=== PATIENT | female | born 1940 | race Caucasian/White ===

== ENCOUNTER 2017-12-23 15:22 | Outpatient (CLI) | payer MEDICARE, MEDICAID ==
--- NOTE | 2017-12-23 16:15 | RAD ---
TWO VIEWS CERVICAL SPINE: 12/23/17 HISTORY: Cervical myelopathy, G95.9. Patient with constant headache, cervical myalgia. AP and lateral views cervical spine demonstrate ACDF. The anterior plate is obliqued toward the right . There is approximately 3.5 mm of anterolisthesis of C4 on C5. There is some anterior displacement o f the anterior fusion plate as well. The screws are in good position. IMPRESSION: Obliquity of the ACDF plate. There is approximately 3.5 mm of anterolisthesis of C4 on C5. POS: [facility]
== END 2017-12-23 15:23 | disposition home or self-care (01) ==
LOC: TBSIIMAG 15:22
PROVIDERS: ATTEND Physician Assistant
DX: G95.9 Disease of spinal cord, unspecified (principal); M43.12 Spondylolisthesis, cervical region; Z98.1 Arthrodesis status
CPT/HCPCS: 72040

== ENCOUNTER 2018-01-06 11:02 | Outpatient (CLI) | payer MEDICARE, MEDICAID ==
--- NOTE | 2018-01-06 11:50 | RAD ---
CERVICAL SPINE THREE VIEWS: HISTORY: A 77-year-old female, status post ACDF. COMPARISON: 12/23/2017 FINDINGS: Stable appearing anterior cervical fusion changes are noted at C3, C4, C5, and C6, with mild, approxi mately 0.3 cm anterolisthesis of C4 on C5, stable. Extensive facet arthrosis. Disk osteophytosis at C6-C7. The tip of the odontoid and portions of C1 are obscured on the AP open-mouth view. IMPRESSION: Stable anterior cervical fusion changes with stable minimal anterolisthesis of C4 on C5. POS: [facility]
== END 2018-01-06 11:03 | disposition home or self-care (01) ==
LOC: TBSIIMAG 11:02
PROVIDERS: ATTEND Neurological Surgery
DX: M50.30 Other cervical disc degeneration, unspecified cervical region (principal); M43.12 Spondylolisthesis, cervical region; Z98.1 Arthrodesis status
CPT/HCPCS: 72040

== ENCOUNTER 2018-02-25 14:55 | Outpatient (CLI) | payer MEDICARE, MEDICAID ==
--- NOTE | 2018-02-25 15:52 | RAD ---
CERVICAL SPINE AP AND LATERAL AND STANDARD: HISTORY: Surgical followup. COMPARISON: Radiographs of 01/06/18. FINDINGS: There are C1-C2 screws. No migration of the diskectomy spacers. No normal C4 anterior vertebral bod y is appreciated. The hardware is to the right of midline. C4 over C5 anterolisthesis is similar. IMPRESSION: Similar examination, although there is some lucency around the C3 screws which abut the end plate. POS: [facility]
== END 2018-02-25 14:56 | disposition home or self-care (01) ==
LOC: TBSIIMAG 14:55
PROVIDERS: ATTEND Neurological Surgery
DX: M50.30 Other cervical disc degeneration, unspecified cervical region (principal); Z98.890 Other specified postprocedural states
CPT/HCPCS: 72040

== ENCOUNTER 2021-01-30 12:56 | Outpatient (CLI) | payer MEDICARE, OTHER | END 2021-01-30 12:57 | disposition home or self-care (01) | LOC: BICRAD 12:56 | PROVIDERS: ATTEND Internal Medicine Pulmonary Disease | DX: R06.00 Dyspnea, unspecified (principal) | CPT/HCPCS: 71046 ==

== ENCOUNTER 2022-02-13 11:06 | Outpatient (CLI) | payer OTHER, MEDICAID | END 2022-02-13 11:07 | disposition home or self-care (01) | LOC: BICCT 11:06 | PROVIDERS: ATTEND Specialist | DX: M84.48XA Pathological fracture, other site, initial encounter for fracture (principal); G83.4 Cauda equina syndrome; M43.17 Spondylolisthesis, lumbosacral region | CPT/HCPCS: 72192 ==

== ENCOUNTER 2022-02-14 16:02 | Inpatient (IN) | payer MEDICAID, MEDICARE, OTHER ==
[2022-02-14] MEDS ORDERED: traMADol HCl 50 MG TAB PO PRN (17:17)
[2022-02-14] MEDS ORDERED: diphenhydrAMINE 25 MG CAP PO PRN (17:17)
[2022-02-14] MEDS ORDERED: Ondansetron PF 4 MG/2 ML Vial IVP PRN (17:17)
[2022-02-14] MEDS ORDERED: Morphine 2 MG/ML VIAL SLOW IVP PRN (17:17)
[2022-02-14] MEDS ORDERED: HYDROcodone/Acetaminophen 10/325 mg Tablet PO PRN (17:26)
[2022-02-14] MEDS ORDERED: Lidocaine 5% Patch TD PRN (17:26)
[2022-02-14] MEDS: Mometasone 100 MCG/PUFF (1 INHALER) INH SCH (19:00)
[2022-02-14 21:19] LABS: #Eosinphils 0.3 thou/uL (0.0-0.7); #Lymphocytes 1.8 thou/uL (1.20-3.40); #Monocytes 0.4 thou/uL (0.11-0.59); #Neutrophils 3.8 thou/uL (1.40-6.50); %Basophils 0.3 % (0.0-1.0); %Eosinophils 5.2 % (0.0-10.0); %Lymphocytes 28.5 % (21.0-51.0); %Monocytes 6.6 % (0.0-10.0); %Neutrophils 59.4 % (42.0-75.0); Hemoglobin 10.8 g/dL (12.0-16.0); Mean Corpuscular HGB CONC 32.7 g/dL (32.0-36.0); Mean Corpuscular Hemoglobin 31.4 pg (27.0-31.0); Mean Corpuscular Volume 95.8 fL (78.0-98.0); Mean Platelet Volume 7.4 fL (7.4-10.4); Platelet Count 255 thou/uL (130-400); RBC Distribution Width 12.3 % (11.5-14.5); Red Blood Cell (RBC) Count 3.46 mill/uL (4.20-5.40); White Blood Cell (WBC) Count 6.3 thou/uL (4.8-10.8)
[2022-02-14] MEDS: Gabapentin 100 MG CAP PO SCH (21:37)
[2022-02-14 21:39] LABS: ALT (SGPT) 10 U/L (8-55); AST (SGOT) 13 U/L (5-34); Albumin 3.5 g/dL (3.4-4.8); Alkaline Phosphatase 99 U/L (40-110); Anion Gap 11 mmol/L (10-20); BUN (Urea Nitrogen) 17 mg/dL (9.8-20.1); Bilirubin, Total 0.3 mg/dL (0.2-1.2); Calc. Creatinine Clearance 0 mL/min (70-130); Calcium 8.8 mg/dL (7.8-10.44); Carbon Dioxide 28 mmol/L (23-31); Chloride 106 mmol/L (98-107); Estimated GFR 61; Globulin 2.6 g/dL (2.4-3.5); Glucose 120 mg/dL (83-110); Potassium 3.4 mmol/L (3.5-5.1); Protein, Total 6.1 g/dL (5.8-8.1); Sodium 142 mmol/L (136-145)
[2022-02-14 21:42] LABS: INR-International Normal Ratio 1.1; Prothrombin Time 13.8 sec (12.0-14.7)
[2022-02-14 21:43] LABS: PTT 32.6 sec (22.9-36.1)
[2022-02-14] MEDS: Sodium Chloride 0.9% 1,000 ML IV SCH (23:25)
[2022-02-14 23:29] VITALS: BMI 33.5
[2022-02-15 01:25] LABS: SARS-CoV-2 NAA Rapid Test Not Detected (NotDetected)
[2022-02-15] MEDS: Acetaminophen 325 MG TAB PO PRN (05:21)
[2022-02-15] MEDS ORDERED: Thrombin 5000 UNITS/5 ML VIAL ONE ×2 (07:24→10:30)
[2022-02-15] MEDS ORDERED: Neomycin-Polymyxin 1 ML AMP ONE (07:24)
[2022-02-15] MEDS ORDERED: Phenylephrine 10 MG/ML VIAL ONE ×2 (07:27→08:14)
[2022-02-15] MEDS ORDERED: Famotidine/PF 20 mg/2ml Vial ONE (07:27)
[2022-02-15] MEDS ORDERED: SUGAMMADEX SODIUM 200 MG/2 ML VIAL ONE ×2 (07:27→12:30)
[2022-02-15] MEDS ORDERED: Sodium Chloride 0.9% 100 ML ONE (07:29)
[2022-02-15] MEDS ORDERED: CEFAZOLIN 2 GM VIAL ONE (07:29)
[2022-02-15] MEDS: Mometasone 100 MCG/PUFF (1 INHALER) INH SCH ×2 (07:34→18:45)
[2022-02-15] MEDS ORDERED: fentaNYL Citrate/PF 100 MCG/2 ML SYRINGE ONE (08:12)
[2022-02-15] MEDS ORDERED: Ondansetron PF 4 MG/2 ML Vial ONE (08:14)
[2022-02-15] MEDS ORDERED: Metoclopramide HCl 10 MG/2 ML VIAL ONE (08:14)
[2022-02-15] MEDS ORDERED: PROPOFOL 200 MG/20 ML VIAL ONE (08:14)
[2022-02-15] MEDS ORDERED: Rocuronium Bromide 10 MG/ML (10ML VIAL) ONE (08:14)
[2022-02-15] MEDS ORDERED: Dexamethasone 20 MG/5 ML VIAL ONE ×2 (08:14)
[2022-02-15] MEDS ORDERED: Lidocaine 1% MPF 2 ML VIAL ONE (08:14)
[2022-02-15] MEDS ORDERED: Ketorolac Tromethamine 30 MG/ML VIAL ONE (08:14)
[2022-02-15] MEDS ORDERED: Glycopyrrolate 0.2 MG/ML 5 ML SYRINGE ONE (08:14)
[2022-02-15] MEDS ORDERED: NEOSTIGMINE 3 MG/3 ML SYR 3 MG/3 ML SYRINGE ONE (08:14)
[2022-02-15] MEDS ORDERED: Non-Formulary Item 1 EACH (Fluticasone/Umeclidin/Vilanter [Trelegy Ellipta 100-62.5-25] 1 INH SCH (09:00)
[2022-02-15] MEDS: Sodium Chloride 0.9% 1,000 ML IV SCH ×2 (09:05→21:22)
[2022-02-15] MEDS: Gabapentin 100 MG CAP PO SCH ×3 (09:05→21:20)
[2022-02-15] MEDS: Valsartan 80 MG TAB PO SCH (09:06)
[2022-02-15] MEDS: Hydrochlorothiazide 25 MG TAB PO SCH (09:06)
[2022-02-15] MEDS ORDERED: Ondansetron HCl/PF 4 MG/2 ML Vial IVP PRN (12:28)
[2022-02-15] MEDS ORDERED: Ketorolac Tromethamine 30 MG/ML VIAL IVP PRN (13:16)
[2022-02-15] MEDS ORDERED: Polyethylene Glycol 3350 17 GM Packet PO PRN (13:18)
[2022-02-15] MEDS ORDERED: LEVALBUTEROL TARTRATE IH PRN (13:20)
[2022-02-15] MEDS ORDERED: hydrALAZINE 20 MG/ML VIAL SLOW IVP PRN (13:20)
[2022-02-15] MEDS ORDERED: Fentanyl 100 MCG/2 ML VIAL ONE (13:31)
[2022-02-15] MEDS ORDERED: Levalbuterol HCl 1.25 MG/0.5 ML NEB NEB PRN (13:55)
[2022-02-15] MEDS: Gabapentin 300 MG CAP PO SCH ×2 (15:03→21:21)
[2022-02-15] MEDS: CEFAZOLIN 2 GM in Sodium Chloride 0.9% 100 ML IVPB SCH ×2 (15:03→21:21)
[2022-02-15 17:27] LABS: Hemoglobin 12.8 g/dL (12.0-16.0)
[2022-02-15] MEDS ORDERED: [UNRECOGNIZED DRUG - OTHER] PO SCH (21:00)
[2022-02-15] MEDS ORDERED: PSEUDOEPHEDRINE PO SCH (21:00)
[2022-02-15] MEDS ORDERED: CETIRIZINE HCL PO SCH (21:00)
[2022-02-15] MEDS: Docusate 100 MG CAP PO SCH (21:21)
[2022-02-15] MEDS: Verapamil 120 MG TAB PO SCH (22:00)
[2022-02-16] MEDS: Acetaminophen/Codeine 30-300mg Tablet PO PRN ×3 (05:51→21:03)
[2022-02-16] MEDS: CEFAZOLIN 2 GM in Sodium Chloride 0.9% 100 ML IVPB SCH ×3 (05:52→21:05)
[2022-02-16 05:53] LABS: #Eosinphils 0.1 thou/uL (0.0-0.7); #Lymphocytes 0.4 thou/uL (1.20-3.40); #Monocytes 0.6 thou/uL (0.11-0.59); #Neutrophils 10.3 thou/uL (1.40-6.50); %Eosinophils 0.6 % (0.0-10.0); %Lymphocytes 3.1 % (21.0-51.0); %Monocytes 5.5 % (0.0-10.0); %Neutrophils 90.8 % (42.0-75.0); Hemoglobin 11.3 g/dL (12.0-16.0); Mean Corpuscular Hemoglobin 32.6 pg (27.0-31.0); Mean Corpuscular Volume 95.9 fL (78.0-98.0); Mean Platelet Volume 8.4 fL (7.4-10.4); Platelet Count 183 thou/uL (130-400); RBC Distribution Width 12.4 % (11.5-14.5); Red Blood Cell (RBC) Count 3.47 mill/uL (4.20-5.40); White Blood Cell (WBC) Count 11.3 thou/uL (4.8-10.8)
[2022-02-16] MEDS: Mometasone 100 MCG/PUFF (1 INHALER) INH SCH ×2 (07:53→18:46)
[2022-02-16 08:02] LABS: Calcium 7.8 mg/dL (7.8-10.44); Chloride 108 mmol/L (98-107); Potassium 4.8 mmol/L (3.5-5.1); Sodium 138 mmol/L (136-145)
[2022-02-16 08:03] LABS: Glucose 125 mg/dL (83-110)
[2022-02-16 08:04] LABS: Anion Gap 13 mmol/L (10-20); Carbon Dioxide 22 mmol/L (23-31)
[2022-02-16 08:06] LABS: Calc. Creatinine Clearance 70 mL/min (70-130); Estimated GFR 68
[2022-02-16 08:07] LABS: BUN (Urea Nitrogen) 21 mg/dL (9.8-20.1)
[2022-02-16] MEDS: Hydrochlorothiazide 25 MG TAB PO SCH (08:16)
[2022-02-16] MEDS: guaiFENesin ER 600 MG TAB PO SCH (08:17)
[2022-02-16] MEDS: Valsartan 80 MG TAB PO SCH (08:17)
[2022-02-16] MEDS: Loratadine/Pseudoephedrine 10/240 mg Tablet PO SCH (08:17)
[2022-02-16] MEDS: Gabapentin 300 MG CAP PO SCH ×3 (08:17→21:05)
[2022-02-16] MEDS: tiZANidine HCl 4 MG TAB PO PRN (08:17)
[2022-02-16] MEDS: Gabapentin 100 MG CAP PO SCH ×3 (08:18→21:04)
[2022-02-16] MEDS: Docusate 100 MG CAP PO SCH ×2 (08:18→21:05)
[2022-02-16] MEDS: Sodium Chloride 0.9% 1,000 ML IV SCH (09:10)
[2022-02-16] MEDS: Lorazepam 1 MG TAB PO PRN (21:04)
[2022-02-16] MEDS: Verapamil 120 MG TAB PO SCH (21:08)
[2022-02-17] MEDS: Sodium Chloride 0.9% 1,000 ML IV SCH ×3 (03:33→23:17)
[2022-02-17] MEDS: CEFAZOLIN 2 GM in Sodium Chloride 0.9% 100 ML IVPB SCH (05:53)
[2022-02-17] MEDS: Acetaminophen/Codeine 30-300mg Tablet PO PRN ×4 (05:58→18:25)
[2022-02-17] MEDS: Mometasone 100 MCG/PUFF (1 INHALER) INH SCH ×2 (06:46→18:39)
[2022-02-17] MEDS: Hydrochlorothiazide 25 MG TAB PO SCH (09:33)
[2022-02-17] MEDS: Gabapentin 300 MG CAP PO SCH ×3 (09:35→20:39)
[2022-02-17] MEDS: guaiFENesin ER 600 MG TAB PO SCH (09:36)
[2022-02-17] MEDS: Valsartan 80 MG TAB PO SCH (09:36)
[2022-02-17] MEDS: Loratadine/Pseudoephedrine 10/240 mg Tablet PO SCH (09:37)
[2022-02-17] MEDS: Docusate 100 MG CAP PO SCH ×2 (09:37→20:39)
[2022-02-17] MEDS: Lorazepam 1 MG TAB PO PRN ×2 (09:37→20:38)
[2022-02-17] MEDS: Gabapentin 100 MG CAP PO SCH ×3 (09:39→19:39)
[2022-02-17 11:10] LABS: Bacteria/HPF None Seen HPF (None Seen); Bilirubin Negative (Negative); Blood, Urine Negative (Negative); Clarity Clear (Clear); Glucose, Urine (Dipstick) Normal (Negative); Ketone, Urine Negative (Negative); Leukocyte Negative Leu/uL (Negative); Nitrite Negative (Negative); Protein, Urine (Dipstick) Negative (Neg-Trace); RBC/HPF 0-3 HPF (0-3); Squamous Epithelial None Seen HPF (0-3); Urobilinogen Normal mg/dL (Less than 2); WBC/HPF 0-3 HPF (0-3); pH, Urine 5.5 (5.0-9.0)
[2022-02-17 11:14] LABS: Urine Culture Reflex No No
[2022-02-17] MEDS: Verapamil 120 MG TAB PO SCH (20:39)
[2022-02-18] MEDS: Mometasone 100 MCG/PUFF (1 INHALER) INH SCH ×2 (06:45→19:14)
[2022-02-18] MEDS: Acetaminophen/Codeine 30-300mg Tablet PO PRN (06:49)
[2022-02-18] MEDS: Gabapentin 100 MG CAP PO SCH ×3 (12:56→19:27)
[2022-02-18] MEDS: HYDROcodone/Acetaminophen 7.5/325 mg Tablet PO PRN ×2 (12:57→20:08)
[2022-02-18] MEDS: Docusate 100 MG CAP PO SCH ×2 (12:59→20:06)
[2022-02-18] MEDS: Valsartan 80 MG TAB PO SCH (12:59)
[2022-02-18] MEDS: Hydrochlorothiazide 25 MG TAB PO SCH (12:59)
[2022-02-18] MEDS: Gabapentin 300 MG CAP PO SCH ×3 (13:00→20:06)
[2022-02-18] MEDS: guaiFENesin ER 600 MG TAB PO SCH ×2 (13:00→13:05)
[2022-02-18] MEDS: Loratadine/Pseudoephedrine 10/240 mg Tablet PO SCH ×2 (13:00→13:06)
[2022-02-18] MEDS: Lorazepam 1 MG TAB PO PRN (13:17)
[2022-02-18] MEDS: Sodium Chloride 0.9% 1,000 ML IV SCH ×2 (14:46→23:05)
[2022-02-18] MEDS: Verapamil 120 MG TAB PO SCH (20:06)
[2022-02-19] MEDS: HYDROcodone/Acetaminophen 7.5/325 mg Tablet PO PRN (05:34)
[2022-02-19] MEDS: Mometasone 100 MCG/PUFF (1 INHALER) INH SCH ×2 (06:32→18:44)
[2022-02-19] MEDS: guaiFENesin ER 600 MG TAB PO SCH (08:00)
[2022-02-19] MEDS: Hydrochlorothiazide 25 MG TAB PO SCH (08:02)
[2022-02-19] MEDS: Docusate 100 MG CAP PO SCH ×2 (08:03→20:59)
[2022-02-19] MEDS: Gabapentin 100 MG CAP PO SCH ×3 (08:04→20:58)
[2022-02-19] MEDS: Valsartan 80 MG TAB PO SCH (08:04)
[2022-02-19] MEDS: Loratadine/Pseudoephedrine 10/240 mg Tablet PO SCH (08:05)
[2022-02-19] MEDS: Gabapentin 300 MG CAP PO SCH ×3 (08:05→20:58)
[2022-02-19] MEDS: Lorazepam 1 MG TAB PO PRN ×2 (08:09→18:09)
[2022-02-19] MEDS: Sodium Chloride 0.9% 1,000 ML IV SCH (16:30)
[2022-02-19] MEDS: Verapamil 120 MG TAB PO SCH (20:57)
[2022-02-20] MEDS: Lorazepam 1 MG TAB PO PRN (01:05)
[2022-02-20] MEDS: Acetaminophen/Codeine 30-300mg Tablet PO PRN ×2 (01:12→09:18)
[2022-02-20] MEDS: Mometasone 100 MCG/PUFF (1 INHALER) INH SCH ×2 (07:29→18:26)
[2022-02-20] MEDS: guaiFENesin ER 600 MG TAB PO SCH (09:18)
[2022-02-20] MEDS: Docusate 100 MG CAP PO SCH ×2 (09:18→19:56)
[2022-02-20] MEDS: Hydrochlorothiazide 25 MG TAB PO SCH (09:19)
[2022-02-20] MEDS: Gabapentin 100 MG CAP PO SCH ×3 (09:19→19:56)
[2022-02-20] MEDS: Valsartan 80 MG TAB PO SCH (09:19)
[2022-02-20] MEDS: Gabapentin 300 MG CAP PO SCH ×3 (09:19→19:57)
[2022-02-20] MEDS: Loratadine/Pseudoephedrine 10/240 mg Tablet PO SCH (09:19)
[2022-02-20] MEDS: Sodium Chloride 0.9% 1,000 ML IV SCH ×2 (09:56→19:57)
[2022-02-20] MEDS: Verapamil 120 MG TAB PO SCH (19:58)
[2022-02-20] MEDS: tiZANidine HCl 4 MG TAB PO PRN (22:21)
[2022-02-21] MEDS: Lorazepam 1 MG TAB PO PRN ×2 (00:48→20:40)
[2022-02-21] MEDS: Mometasone 100 MCG/PUFF (1 INHALER) INH SCH ×2 (07:52→19:47)
[2022-02-21] MEDS: Docusate 100 MG CAP PO SCH ×2 (08:36→20:40)
[2022-02-21] MEDS: Gabapentin 100 MG CAP PO SCH ×3 (08:36→20:40)
[2022-02-21] MEDS: Loratadine/Pseudoephedrine 10/240 mg Tablet PO SCH (08:36)
[2022-02-21] MEDS: guaiFENesin ER 600 MG TAB PO SCH (08:36)
[2022-02-21] MEDS: Gabapentin 300 MG CAP PO SCH ×3 (08:36→20:41)
[2022-02-21] MEDS: Hydrochlorothiazide 25 MG TAB PO SCH (08:37)
[2022-02-21] MEDS: Valsartan 80 MG TAB PO SCH (08:37)
[2022-02-21] MEDS: Sodium Chloride 0.9% 1,000 ML IV SCH ×2 (09:57→23:54)
[2022-02-21] MEDS: Verapamil 120 MG TAB PO SCH (20:40)
[2022-02-21] MEDS: tiZANidine HCl 4 MG TAB PO PRN (20:40)
[2022-02-22] MEDS: Mometasone 100 MCG/PUFF (1 INHALER) INH SCH ×2 (06:51→19:20)
[2022-02-22] MEDS: guaiFENesin ER 600 MG TAB PO SCH (08:33)
[2022-02-22] MEDS: Loratadine/Pseudoephedrine 10/240 mg Tablet PO SCH (08:33)
[2022-02-22] MEDS: Valsartan 80 MG TAB PO SCH (08:33)
[2022-02-22] MEDS: Gabapentin 300 MG CAP PO SCH ×3 (08:33→20:34)
[2022-02-22] MEDS: Docusate 100 MG CAP PO SCH ×2 (08:33→20:34)
[2022-02-22] MEDS: Hydrochlorothiazide 25 MG TAB PO SCH (08:33)
[2022-02-22] MEDS: Gabapentin 100 MG CAP PO SCH ×3 (08:33→20:34)
[2022-02-22] MEDS: Sodium Chloride 0.9% 1,000 ML IV SCH (11:14)
[2022-02-22] MEDS: Verapamil 120 MG TAB PO SCH (20:34)
[2022-02-22] MEDS: Lorazepam 1 MG TAB PO PRN (20:34)
[2022-02-22] MEDS: tiZANidine HCl 4 MG TAB PO PRN (20:35)
[2022-02-23] MEDS: Sodium Chloride 0.9% 1,000 ML IV SCH ×2 (00:49→13:45)
[2022-02-23] MEDS: Mometasone 100 MCG/PUFF (1 INHALER) INH SCH ×2 (07:20→18:39)
[2022-02-23] MEDS: Loratadine/Pseudoephedrine 10/240 mg Tablet PO SCH (09:20)
[2022-02-23] MEDS: Gabapentin 300 MG CAP PO SCH ×3 (09:20→20:21)
[2022-02-23] MEDS: Valsartan 80 MG TAB PO SCH (09:20)
[2022-02-23] MEDS: Docusate 100 MG CAP PO SCH ×2 (09:20→20:22)
[2022-02-23] MEDS: guaiFENesin ER 600 MG TAB PO SCH (09:21)
[2022-02-23] MEDS: Gabapentin 100 MG CAP PO SCH ×3 (09:21→20:20)
[2022-02-23] MEDS: Hydrochlorothiazide 25 MG TAB PO SCH (09:21)
[2022-02-23] MEDS: Acetaminophen 325 MG TAB PO PRN (20:19)
[2022-02-23] MEDS: Verapamil 120 MG TAB PO SCH (20:19)
[2022-02-23] MEDS: Lorazepam 1 MG TAB PO PRN (20:20)
[2022-02-24] MEDS: Sodium Chloride 0.9% 1,000 ML IV SCH ×2 (04:15→18:43)
[2022-02-24] MEDS: Mometasone 100 MCG/PUFF (1 INHALER) INH SCH ×2 (07:55→19:21)
[2022-02-24] MEDS: Acetaminophen/Codeine 30-300mg Tablet PO PRN ×2 (09:42→15:58)
[2022-02-24] MEDS: guaiFENesin ER 600 MG TAB PO SCH (09:43)
[2022-02-24] MEDS: Loratadine/Pseudoephedrine 10/240 mg Tablet PO SCH (09:43)
[2022-02-24] MEDS: Hydrochlorothiazide 25 MG TAB PO SCH (09:43)
[2022-02-24] MEDS: Valsartan 80 MG TAB PO SCH (09:43)
[2022-02-24] MEDS: Gabapentin 300 MG CAP PO SCH ×3 (09:44→20:27)
[2022-02-24] MEDS: Docusate 100 MG CAP PO SCH ×2 (09:48→20:26)
[2022-02-24] MEDS: Gabapentin 100 MG CAP PO SCH ×2 (11:36→15:59)
[2022-02-24] MEDS: Verapamil 120 MG TAB PO SCH (20:27)
[2022-02-24] MEDS: Lorazepam 1 MG TAB PO PRN (20:27)
[2022-02-25] MEDS: Sodium Chloride 0.9% 1,000 ML IV SCH ×2 (02:23→19:27)
[2022-02-25] MEDS: Mometasone 100 MCG/PUFF (1 INHALER) INH SCH ×2 (06:51→19:01)
[2022-02-25] MEDS: Gabapentin 300 MG CAP PO SCH ×3 (08:20→20:32)
[2022-02-25] MEDS: Loratadine/Pseudoephedrine 10/240 mg Tablet PO SCH (08:20)
[2022-02-25] MEDS: Hydrochlorothiazide 25 MG TAB PO SCH (08:20)
[2022-02-25] MEDS: guaiFENesin ER 600 MG TAB PO SCH (08:20)
[2022-02-25] MEDS: Docusate 100 MG CAP PO SCH ×2 (08:20→20:32)
[2022-02-25] MEDS: Valsartan 80 MG TAB PO SCH (08:20)
[2022-02-25] MEDS: Acetaminophen/Codeine 30-300mg Tablet PO PRN ×2 (12:54→17:25)
[2022-02-25] MEDS: Verapamil 120 MG TAB PO SCH (20:32)
[2022-02-25] MEDS: Lorazepam 1 MG TAB PO PRN (20:32)
[2022-02-26] MEDS: Mometasone 100 MCG/PUFF (1 INHALER) INH SCH ×2 (07:09→19:07)
[2022-02-26] MEDS: Docusate 100 MG CAP PO SCH ×2 (09:07→20:19)
[2022-02-26] MEDS: Gabapentin 300 MG CAP PO SCH ×3 (09:09→20:20)
[2022-02-26] MEDS: guaiFENesin ER 600 MG TAB PO SCH (09:10)
[2022-02-26] MEDS: Hydrochlorothiazide 25 MG TAB PO SCH (09:11)
[2022-02-26] MEDS: Loratadine/Pseudoephedrine 10/240 mg Tablet PO SCH (09:12)
[2022-02-26] MEDS: Acetaminophen/Codeine 30-300mg Tablet PO PRN ×2 (09:13→17:52)
[2022-02-26] MEDS: Valsartan 80 MG TAB PO SCH (09:14)
[2022-02-26] MEDS: Sodium Chloride 0.9% 1,000 ML IV SCH ×2 (14:29→22:53)
[2022-02-26] MEDS: HYDROcodone/Acetaminophen 7.5/325 mg Tablet PO PRN (20:20)
[2022-02-26] MEDS: Verapamil 120 MG TAB PO SCH (20:23)
[2022-02-27] MEDS: Mometasone 100 MCG/PUFF (1 INHALER) INH SCH ×2 (06:25→18:48)
[2022-02-27] MEDS: Valsartan 80 MG TAB PO SCH (09:09)
[2022-02-27] MEDS: guaiFENesin ER 600 MG TAB PO SCH (09:10)
[2022-02-27] MEDS: Loratadine/Pseudoephedrine 10/240 mg Tablet PO SCH (09:11)
[2022-02-27] MEDS: Hydrochlorothiazide 25 MG TAB PO SCH (09:11)
[2022-02-27] MEDS: Gabapentin 300 MG CAP PO SCH (09:12)
[2022-02-27] MEDS: Docusate 100 MG CAP PO SCH (09:17)
[2022-02-27] MEDS: HYDROcodone/Acetaminophen 7.5/325 mg Tablet PO PRN (11:17)
[2022-02-27 16:13] VITALS: BP 102/79; TEMP 97.8
== END 2022-02-27 17:10 | disposition home health service (06) | DRG 460 ==
LOC: ERS 16:02 → SURG A 17:17
PROVIDERS: ADMIT Surgery; ATTEND Surgery
PROC: 0SG30AJ Fusion of Lumbosacral Joint with Interbody Fusion Device, Posterior Approach, Anterior Column, Open Approach (ICD-10-PCS; principal; 2022-02-15)
PROC: 01NR0ZZ Release Sacral Nerve, Open Approach (ICD-10-PCS; 2022-02-15)
PROC: 01NB0ZZ Release Lumbar Nerve, Open Approach (ICD-10-PCS; 2022-02-15)
PROC: 30233N1 Transfusion of Nonautologous Red Blood Cells into Peripheral Vein, Percutaneous Approach (ICD-10-PCS; 2022-02-15)
DX: M43.17 Spondylolisthesis, lumbosacral region (principal); G83.4 Cauda equina syndrome; Z20.822 Contact with and (suspected) exposure to COVID-19; M19.90 Unspecified osteoarthritis, unspecified site; I10 Essential (primary) hypertension; J44.9 Chronic obstructive pulmonary disease, unspecified; F41.9 Anxiety disorder, unspecified; G89.29 Other chronic pain; Z90.49 Acquired absence of other specified parts of digestive tract; Z28.21 Immunization not carried out because of patient refusal; Z90.710 Acquired absence of both cervix and uterus; Z98.890 Other specified postprocedural states; Z88.6 Allergy status to analgesic agent; Z88.5 Allergy status to narcotic agent; Z79.899 Other long term (current) drug therapy; Z87.891 Personal history of nicotine dependence
CPT/HCPCS: 36415; 36430; 51702; 72192; 76000; 80048; 80053; 81001; 85014; 85018; 85025; 85610; 85730; 86850; 86900; 86901; 87811; 93005; 93970; 94640; C1713; C1768; C1776; J0690; J1100; J1885; J2370; J2405; J2704; J2765; J3010; J3370; J3490; J7050; J7620; P9016; S0028; U0002

== ENCOUNTER 2022-04-04 10:31 | Outpatient (CLI) | payer OTHER | END 2022-04-04 10:32 | disposition home or self-care (01) | LOC: TBSIIMAG 10:31 | PROVIDERS: ATTEND Surgery | DX: R07.81 Pleurodynia (principal); M47.816 Spondylosis without myelopathy or radiculopathy, lumbar region; M43.17 Spondylolisthesis, lumbosacral region; Z98.890 Other specified postprocedural states | CPT/HCPCS: 72100 ==

== ENCOUNTER 2022-07-04 14:52 | Observation (INO) | payer OTHER, MEDICAID ==
[2022-07-04 15:25] LABS: Bacteria/HPF None Seen HPF (None Seen); Bilirubin Negative (Negative); Blood, Urine Negative (Negative); Clarity Clear (Clear); Glucose, Urine (Dipstick) Normal (Negative); Ketone, Urine Negative (Negative); Leukocyte 25 Leu/uL (Negative); Nitrite Negative (Negative); Protein, Urine (Dipstick) 10 mg/dL (Neg-Trace); RBC/HPF 0-3 HPF (0-3); Specific Gravity, Urine 1.024 (1.002-1.036); Squamous Epithelial 0-3 HPF (0-3); Urobilinogen Normal mg/dL (Less than 2); pH, Urine 5.5 (5.0-9.0)
[2022-07-04 15:52] LABS: #Eosinphils 0.1 thou/uL (0.0-0.7); #Lymphocytes 1.3 thou/uL (1.20-3.40); #Monocytes 0.4 thou/uL (0.11-0.59); #Neutrophils 2.6 thou/uL (1.40-6.50); %Basophils 0.9 % (0.0-1.0); %Eosinophils 2.8 % (0.0-10.0); %Lymphocytes 29.5 % (21.0-51.0); %Monocytes 9.2 % (0.0-10.0); %Neutrophils 57.6 % (42.0-75.0); Hemoglobin 12.8 g/dL (12.0-16.0); Mean Corpuscular HGB CONC 33.2 g/dL (32.0-36.0); Mean Corpuscular Hemoglobin 30.3 pg (27.0-31.0); Mean Corpuscular Volume 91.5 fl (78.0-98.0); Mean Platelet Volume 7.6 fL (7.4-10.4); Platelet Count 269 10x3/uL (130-400); RBC Distribution Width 12.6 % (11.5-14.5); White Blood Cell (WBC) Count 4.5 10x3/uL (4.8-10.8)
[2022-07-04 16:18] LABS: ALT (SGPT) 11 U/L (8-55); AST (SGOT) 18 U/L (5-34); Alkaline Phosphatase 93 U/L (40-110); Anion Gap 14 mmol/L (10-20); BUN (Urea Nitrogen) 15 mg/dL (9.8-20.1); Bilirubin, Total 0.6 mg/dL (0.2-1.2); Calc. Creatinine Clearance 0 mL/min (70-130); Calcium 9.6 mg/dL (7.8-10.44); Carbon Dioxide 26 mmol/L (23-31); Chloride 102 mmol/L (98-107); Estimated GFR 56; Globulin 3.4 g/dL (2.4-3.5); Glucose 99 mg/dL (83-110); Potassium 3.8 mmol/L (3.5-5.1); Protein, Total 7.4 g/dL (5.8-8.1); Sodium 138 mmol/L (136-145)
[2022-07-04] MEDS ORDERED: Ondansetron ODT 4 MG TAB PO PRN (18:54)
[2022-07-04] MEDS ORDERED: Acetaminophen 325 MG TAB PO PRN (18:54)
[2022-07-04] MEDS ORDERED: Ondansetron PF 4 MG/2 ML Vial IVP PRN (18:54)
[2022-07-04 19:23] LABS: Hemoglobin A1c 5.4 % (4.0-6.0)
[2022-07-04 19:37] LABS: Magnesium 1.9 mg/dL (1.6-2.6); Phosphorus 3.5 mg/dL (2.3-4.7)
[2022-07-04 19:41] LABS: Amphetamine Not Detected (NotDetected); Barbiturates Screen Not Detected (NotDetected); Benzodiazepine Screen Detected (NotDetected); Cocaine Metabolite Screen Not Detected (NotDetected); Methadone Not Detected (NotDetected); Methamphetamine Not Detected (NotDetected); Opiate Screen Not Detected (NotDetected); Oxycodone Screen Not Detected (NotDetected); Phencyclidine (PCP) Not Detected (NotDetected); THC/Cannabinoid Screen Not Detected (NotDetected); Tricyclic Screen Not Detected (NotDetected)
[2022-07-04] MEDS ORDERED: Clopidogrel Bisulfate 75 MG TAB ONE (20:17)
[2022-07-04] MEDS ORDERED: Atorvastatin Calcium 40 MG TAB PO SCH (21:00)
[2022-07-04] MEDS ORDERED: hydrALAZINE 20 MG/ML VIAL SLOW IVP PRN (21:50)
[2022-07-04 21:59] VITALS: BMI 30.4
[2022-07-04] MEDS ORDERED: Donepezil HCl 10 MG TAB PO SCH (22:46)
[2022-07-04] MEDS ORDERED: Oxybutynin 5 MG TAB PO SCH (22:46)
[2022-07-04] MEDS ORDERED: guaiFENesin ER 600 MG TAB PO PRN (22:46)
[2022-07-05] MEDS: Ipratropium/Albuterol 3 ML NEB NEB SCH ×3 (02:25→10:59)
[2022-07-05 05:35] LABS: #Eosinphils 0.3 thou/uL (0.0-0.7); #Lymphocytes 1.5 thou/uL (1.20-3.40); #Monocytes 0.5 thou/uL (0.11-0.59); #Neutrophils 2.5 thou/uL (1.40-6.50); %Basophils 0.7 % (0.0-1.0); %Eosinophils 5.7 % (0.0-10.0); %Lymphocytes 30.9 % (21.0-51.0); %Monocytes 10.8 % (0.0-10.0); %Neutrophils 51.9 % (42.0-75.0); Hemoglobin 12.8 g/dL (12.0-16.0); Mean Corpuscular HGB CONC 32.9 g/dL (32.0-36.0); Mean Corpuscular Hemoglobin 30.3 pg (27.0-31.0); Mean Platelet Volume 7.9 fL (7.4-10.4); Platelet Count 254 10x3/uL (130-400); RBC Distribution Width 12.6 % (11.5-14.5); Red Blood Cell (RBC) Count 4.22 mill/uL (4.20-5.40); White Blood Cell (WBC) Count 4.7 10x3/uL (4.8-10.8)
[2022-07-05 05:55] LABS: Anion Gap 11 mmol/L (10-20); BUN (Urea Nitrogen) 12 mg/dL (9.8-20.1); Calc. Creatinine Clearance 66 mL/min (70-130); Calcium 9.5 mg/dL (7.8-10.44); Carbon Dioxide 25 mmol/L (23-31); Cardiac Risk 3.6 (Less than 4.5); Chloride 105 mmol/L (98-107); Cholesterol 203 mg/dl (< 200 Desired); Estimated GFR 72; Glucose 99 mg/dL (83-110); HDL Cholesterol 56 mg/dL (>60 Neg Risk); LDL Cholesterol, Calculated 128 mg/dL; Potassium 3.3 mmol/L (3.5-5.1); Sodium 138 mmol/L (136-145); Triglycerides 94 mg/dL (Less than 150)
[2022-07-05] MEDS ORDERED: Mometasone 100 MCG/PUFF (1 INHALER) INH SCH (06:30)
[2022-07-05] MEDS ORDERED: Loratadine/Pseudoephedrine 10/240 mg Tablet PO PRN (09:00)
[2022-07-05] MEDS ORDERED: Lorazepam 1 MG TAB PO PRN (09:15)
[2022-07-05 12:35] VITALS: BP 91/61; TEMP 97.8
[2022-07-05] MEDS ORDERED: Oxybutynin 5 MG TAB PO SCH (21:00)
[2022-07-05] MEDS ORDERED: Donepezil HCl 10 MG TAB PO SCH (21:00)
== END 2022-07-05 15:48 | disposition left against medical advice (07) ==
LOC: ERS 14:52 → ERHOLD 18:13 → 2SW 21:28
PROVIDERS: ADMIT Internal Medicine; ATTEND Internal Medicine
DX: G45.9 Transient cerebral ischemic attack, unspecified (principal); I10 Essential (primary) hypertension; J44.9 Chronic obstructive pulmonary disease, unspecified; M19.90 Unspecified osteoarthritis, unspecified site; Z53.29 Procedure and treatment not carried out because of patient's decision for other reasons; Z87.891 Personal history of nicotine dependence; Z79.899 Other long term (current) drug therapy; Z88.5 Allergy status to narcotic agent; Z88.8 Allergy status to other drugs, medicaments and biological substances; Z20.822 Contact with and (suspected) exposure to COVID-19
CPT/HCPCS: 70450; 70551; 80048; 80061; 80306; 83036; 83735; 84100; 85025; 93880; 94640; 94760; U0003; U0005; 36415; 80053; 81003; 81015; 84443; G0378; J7620

== ENCOUNTER 2023-12-25 11:37 | Emergency (ER) | payer OTHER | END 2023-12-25 15:26 | disposition home or self-care (01) | LOC: ERS 11:37 | DX: S00.83XA Contusion of other part of head, initial encounter (principal); S00.31XA Abrasion of nose, initial encounter; I10 Essential (primary) hypertension; J44.9 Chronic obstructive pulmonary disease, unspecified; M19.90 Unspecified osteoarthritis, unspecified site; W01.198A Fall on same level from slipping, tripping and stumbling with subsequent striking against other object, initial encounter; Y93.89 Activity, other specified; Y92.003 Bedroom of unspecified non-institutional (private) residence as the place of occurrence of the external cause; Z87.891 Personal history of nicotine dependence; Z79.899 Other long term (current) drug therapy | CPT/HCPCS: 70450; 70486; 99284 ==

== ENCOUNTER 2024-01-02 13:47 | Emergency (ER) | payer OTHER ==
[2024-01-02 15:11] LABS: Bacteria/HPF None Seen HPF (None Seen); Bilirubin Negative (Negative); Blood, Urine Negative (Negative); CAUTI Indications for Culture Alt mental st,lethar; Clarity Clear (Clear); Glucose, Urine (Dipstick) Normal (Negative); Ketone, Urine Negative (Negative); Leukocyte Negative Leu/uL (Negative); Nitrite Negative (Negative); Protein, Urine (Dipstick) Negative (Neg-Trace); RBC/HPF None Seen HPF (0-3); Specific Gravity, Urine 1.011 (1.002-1.036); Squamous Epithelial 0-3 HPF (0-3); Urobilinogen Normal mg/dL (Less than 2); WBC/HPF 0-3 HPF (0-3)
[2024-01-02 15:47] LABS: Urine Culture Reflex No No
[2024-01-02 16:20] LABS: #Basophils 0.05 10x3/uL (0.0-0.2); %Basophils 0.9 % (0.0-1.0); %Eosinophils 3.2 % (0.0-10.0); %Lymphocytes 24.9 % (21.0-51.0); %Monocytes 8.9 % (0.0-10.0); %Neutrophils 61.9 % (42.0-75.0); Hematocrit 37.2 % (36.0-47.0); Hemoglobin 12.1 g/dL (12.0-16.0); Mean Corpuscular HGB CONC 32.5 g/dL (32.0-36.0); Mean Corpuscular Hemoglobin 29.1 pg (27.0-31.0); Mean Corpuscular Volume 89.4 fL (78.0-98.0); Mean Platelet Volume 10.3 fL (7.4-10.4); Platelet Count 280 10x3/uL (130-400); RBC Distribution Width 14.3 % (11.5-14.5); Red Blood Cell (RBC) Count 4.16 mill/uL (4.20-5.40)
[2024-01-02 16:40] LABS: ALT (SGPT) 11 U/L (8-55); AST (SGOT) 20 U/L (5-34); Albumin 3.8 g/dL (3.4-4.8); Alkaline Phosphatase 84 U/L (40-110); Anion Gap 17 mmol/L (10-20); BUN (Urea Nitrogen) 24 mg/dL (9.8-20.1); Bilirubin, Total 0.4 mg/dL (0.2-1.2); Calc. Creatinine Clearance 0 mL/min (70-130); Calcium 9.5 mg/dL (7.8-10.44); Carbon Dioxide 24 mmol/L (23-31); Chloride 103 mmol/L (98-107); Estimated GFR 40; Globulin 3.2 g/dL (2.4-3.5); Glucose 73 mg/dL (83-110); Potassium 4.4 mmol/L (3.5-5.1); Sodium 140 mmol/L (136-145)
== END 2024-01-02 18:04 | disposition home or self-care (01) ==
LOC: ERS 13:47
DX: R30.0 Dysuria (principal); H53.8 Other visual disturbances; I10 Essential (primary) hypertension; J44.9 Chronic obstructive pulmonary disease, unspecified; M19.90 Unspecified osteoarthritis, unspecified site; Z87.891 Personal history of nicotine dependence; Z79.01 Long term (current) use of anticoagulants; Z79.899 Other long term (current) drug therapy
CPT/HCPCS: 70450; 80053; 81001; 85025; 87086

== ENCOUNTER 2024-05-24 09:10 | Inpatient (IN) | payer OTHER ==
[2024-05-24 11:17] LABS: ALT (SGPT) 7 U/L (8-55); AST (SGOT) 22 U/L (5-34); Albumin 3.9 g/dL (3.4-4.8); Alkaline Phosphatase 97 U/L (40-110); Anion Gap 17 mmol/L (10-20); BUN (Urea Nitrogen) 14 mg/dL (9.8-20.1); Bilirubin, Total 0.5 mg/dL (0.2-1.2); Calc. Creatinine Clearance 0 mL/min (70-130); Calcium 9.1 mg/dL (7.8-10.44); Carbon Dioxide 18 mmol/L (23-31); Chloride 106 mmol/L (98-107); Estimated GFR 74; Globulin 3.3 g/dL (2.4-3.5); Glucose 90 mg/dL (83-110); Potassium 4.4 mmol/L (3.5-5.1); Protein, Total 7.2 g/dL (5.8-8.1); Sodium 137 mmol/L (136-145)
[2024-05-24 11:18] LABS: Troponin I Less than 0.010 ng/mL (< 0.028)
[2024-05-24 11:26] LABS: #Basophils 0.05 10x3/uL (0.0-0.2); %Basophils 1.1 % (0.0-1.0); %Eosinophils 4.2 % (0.0-10.0); %Lymphocytes 23.4 % (21.0-51.0); %Monocytes 8.4 % (0.0-10.0); %Neutrophils 62.7 % (42.0-75.0); Hematocrit 41.4 % (36.0-47.0); Hemoglobin 13.1 g/dL (12.0-16.0); Mean Corpuscular HGB CONC 31.6 g/dL (32.0-36.0); Mean Corpuscular Volume 88.5 fL (78.0-98.0); Mean Platelet Volume 10.3 fL (7.4-10.4); Platelet Count 235 10x3/uL (130-400); RBC Distribution Width 14.6 % (11.5-14.5); Red Blood Cell (RBC) Count 4.68 mill/uL (4.20-5.40)
[2024-05-24] MEDS ORDERED: Ipratropium/Albuterol 3 ML NEB NEB PRN (11:33)
[2024-05-24] MEDS ORDERED: CALCIUM GLUC 1 GM/NS 50 ML IV Bag ONE (12:25)
[2024-05-24 13:13] LABS: Bacteria/HPF None Seen HPF (None Seen); Bilirubin Negative (Negative); Blood, Urine Negative (Negative); CAUTI Indications for Culture Dysuria,urgency,freq; Clarity Clear (Clear); Glucose, Urine (Dipstick) Normal (Negative); Ketone, Urine Negative (Negative); Leukocyte Negative Leu/uL (Negative); Nitrite Negative (Negative); Protein, Urine (Dipstick) Negative (Neg-Trace); RBC/HPF None Seen HPF (0-3); Squamous Epithelial 0-3 HPF (0-3); Urobilinogen Normal mg/dL (Less than 2); WBC/HPF 0-3 HPF (0-3); pH, Urine 7.5 (5.0-9.0)
[2024-05-24 13:15] VITALS: BMI 34.4
[2024-05-24 13:16] LABS: Urine Culture Reflex No No
[2024-05-24] MEDS ORDERED: Morphine 2 MG/ML VIAL SLOW IVP PRN (15:14)
[2024-05-24] MEDS: fentaNYL 50 mcg/mL 1 mL Vial SLOW IVP PRN (18:01)
[2024-05-24] MEDS: hydrALAZINE 20 MG/ML VIAL SLOW IVP PRN (20:22)
[2024-05-24] MEDS: Sterile Water 10 ML VIAL FS SCH (20:48)
[2024-05-24] MEDS: OLANZapine 10 MG VIAL IM SCH (20:48)
[2024-05-24] MEDS ORDERED: Apixaban 5 MG TAB PO SCH (21:00)
[2024-05-25] MEDS ORDERED: Sterile Water 10 ML VIAL FS PRN (01:15)
[2024-05-25] MEDS: OLANZapine 10 MG VIAL IM SCH (01:18)
[2024-05-25 05:28] LABS: ALT (SGPT) 8 U/L (8-55); AST (SGOT) 13 U/L (5-34); Albumin 3.3 g/dL (3.4-4.8); Alkaline Phosphatase 84 U/L (40-110); Anion Gap 15 mmol/L (10-20); BUN (Urea Nitrogen) 16 mg/dL (9.8-20.1); Calc. Creatinine Clearance 73 mL/min (70-130); Carbon Dioxide 20 mmol/L (23-31); Chloride 105 mmol/L (98-107); Estimated GFR 72; Globulin 2.6 g/dL (2.4-3.5); Glucose 99 mg/dL (83-110); Potassium 3.8 mmol/L (3.5-5.1); Protein, Total 5.9 g/dL (5.8-8.1); Sodium 136 mmol/L (136-145)
[2024-05-25 07:32] LABS: Bilirubin, Total 0.5 mg/dL (0.2-1.2); Calcium 9.3 mg/dL (7.8-10.44)
[2024-05-25] MEDS: FLU (Fluad Triv) TS24-25 (65UP)/MF59C/PF 45 MCG/0.5 ML Syringe IM ONE (09:09)
[2024-05-25] MEDS: traMADol HCl 50 MG TAB PO PRN (09:41)
[2024-05-25] MEDS ORDERED: CEFAZOLIN 1 GM VIAL ONE (13:44)
[2024-05-25] MEDS ORDERED: CEFAZOLIN 2 GM VIAL ONE (13:44)
[2024-05-25] MEDS ORDERED: Lidocaine 1% (PF) 30 ML VIAL ONE (13:44)
[2024-05-25] MEDS ORDERED: Gentamicin 80 MG/2 ML VIAL ONE (13:44)
[2024-05-25] MEDS ORDERED: Midazolam HCl 2 mg/2 ml Vial ONE (15:24)
[2024-05-26] MEDS: Acetaminophen 325 MG TAB PO PRN (00:29)
[2024-05-26 04:45] LABS: Hematocrit 42.7 % (36.0-47.0); Hemoglobin 13.5 g/dL (12.0-16.0); Mean Corpuscular HGB CONC 31.6 g/dL (32.0-36.0); Mean Corpuscular Hemoglobin 27.8 pg (27.0-31.0); Mean Corpuscular Volume 87.9 fL (78.0-98.0); Mean Platelet Volume 10.2 fL (7.4-10.4); Platelet Count 256 10x3/uL (130-400); RBC Distribution Width 14.6 % (11.5-14.5); Red Blood Cell (RBC) Count 4.86 mill/uL (4.20-5.40)
[2024-05-26 05:06] LABS: Anion Gap 17 mmol/L (10-20); BUN (Urea Nitrogen) 20 mg/dL (9.8-20.1); Calc. Creatinine Clearance 73 mL/min (70-130); Calcium 9.4 mg/dL (7.8-10.44); Carbon Dioxide 21 mmol/L (23-31); Chloride 105 mmol/L (98-107); Estimated GFR 72; Glucose 99 mg/dL (83-110); Potassium 3.7 mmol/L (3.5-5.1); Sodium 139 mmol/L (136-145)
[2024-05-26] MEDS ORDERED: diphenhydrAMINE 25 MG CAP PO PRN (09:20)
[2024-05-26 16:29] VITALS: BP 156/90; TEMP 98.2
== END 2024-05-26 19:23 | disposition home or self-care (01) | DRG 243 ==
LOC: ERS 09:10 → ERHOLD 11:51 → CCU 12:52 → 2SE 05-25 22:08
PROVIDERS: ADMIT Internal Medicine; ATTEND Internal Medicine
PROC: 0JH606Z Insertion of Pacemaker, Dual Chamber into Chest Subcutaneous Tissue and Fascia, Open Approach (ICD-10-PCS; principal; 2024-05-25)
PROC: 02H63JZ Insertion of Pacemaker Lead into Right Atrium, Percutaneous Approach (ICD-10-PCS; 2024-05-25)
PROC: 02HK3JZ Insertion of Pacemaker Lead into Right Ventricle, Percutaneous Approach (ICD-10-PCS; 2024-05-25)
DX: I44.2 Atrioventricular block, complete (principal); F03.94 Unspecified dementia, unspecified severity, with anxiety; I10 Essential (primary) hypertension; J44.9 Chronic obstructive pulmonary disease, unspecified; M19.90 Unspecified osteoarthritis, unspecified site; F41.9 Anxiety disorder, unspecified; I48.0 Paroxysmal atrial fibrillation; R00.1 Bradycardia, unspecified; I35.0 Nonrheumatic aortic (valve) stenosis; Z88.8 Allergy status to other drugs, medicaments and biological substances; Z88.5 Allergy status to narcotic agent; Z90.710 Acquired absence of both cervix and uterus; Z90.49 Acquired absence of other specified parts of digestive tract; Z87.891 Personal history of nicotine dependence; Z79.01 Long term (current) use of anticoagulants; Z79.899 Other long term (current) drug therapy
CPT/HCPCS: 33208; 36415; 36416; 70450; 71045; 80048; 80053; 81001; 84484; 85025; 85027; 90653; 93005; 93010; 96374; 99152; 99153; C1785; C1898; J0360; J0613; J0690; J1580; J2250; J3010